=== PATIENT | male | born 1955 | race Caucasian/White ===

== ENCOUNTER 2016-09-12 10:33 | Emergency (ER) | payer OTHER, MEDICAID ==
[2016-09-12 10:46] VITALS: BP 167/96
[2016-09-12] MEDS ORDERED: PROPARACAINE 0.5% OPHTH DROPS 15 ML ONE (12:06)
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
== END 2016-09-12 12:29 | disposition home or self-care (01) ==
LOC: ED 10:33
DX: S05.02XA Injury of conjunctiva and corneal abrasion without foreign body, left eye, initial encounter (principal)
CPT/HCPCS: 99283; J3490

== ENCOUNTER 2016-12-23 18:41 | Outpatient (CLI) | payer OTHER, MEDICAID | END 2016-12-23 18:42 | disposition short-term general hospital (02) | LOC: EMS 18:41 | PROVIDERS: ATTEND Surgery | DX: M54.2 Cervicalgia (principal); W17.89XA Other fall from one level to another, initial encounter; Y93.H9 Activity, other involving exterior property and land maintenance, building and construction; Y92.007 Garden or yard of unspecified non-institutional (private) residence as the place of occurrence of the external cause | CPT/HCPCS: A0425; A0429 ==

== ENCOUNTER 2017-02-25 11:20 | Emergency (ER) | payer OTHER, MEDICAID ==
[2017-02-25] MEDS ORDERED: HYDROmorphone 0.5 MG/0.5 ML SYRINGE IVP STA (11:49)
[2017-02-25] MEDS ORDERED: diazePAM INJ 5 MG/ML SYRINGE IVP STA (11:49)
[2017-02-25] MEDS ORDERED: HYDROmorphone 1 MG/ML SYRINGE IVP STA (12:16)
[2017-02-25] MEDS ORDERED: diazePAM INJ 5 MG/ML SYRINGE ONE (12:31)
[2017-02-25] MEDS ORDERED: HYDROmorphone 1 MG/ML SYRINGE ONE (12:32)
[2017-02-25 12:43] LABS: BASOPHILS # (AUTO) 0.1 10^3/uL (0.0-0.1); BASOPHILS % (AUTO) 1.2 %; EOSINOPHILS # (AUTO) 0.1 10^3/uL (0.0-0.7); EOSINOPHILS % (AUTO) 1.2 %; HCT - HEMATOCRIT 42.3 % (42.0-52.0); HGB - HEMOGLOBIN 14.5 g/dL (14.0-18.0); LYMPHOCYTES # (AUTO) 1.3 10^3/uL (1.5-3.5); MEAN CORPUSCULAR HEMOGLOBIN 28.8 pg (27.0-31.0); MEAN CORPUSCULAR HGB CONC 34.2 g/dL (32.0-36.0); MEAN CORPUSCULAR VOLUME 84.3 fL (80.0-94.0); MEAN PLATELET VOLUME 7.6 fL (7.4-11.4); MONOCYTES # (AUTO) 0.4 10^3/uL (0.0-1.0); MONOCYTES % (AUTO) 7.3 %; NEUTROPHILS # (AUTO) 3.4 10^3/uL (1.5-6.6); NEUTROPHILS % (AUTO) 65.3 %; NUCLEATED RED BLOOD CELLS AUTO 0.1 /100WBC; RED BLOOD COUNT 5.02 10^6/uL (4.70-6.10); RED CELL DISTRIBUTION WIDTH 15.2 % (12.0-15.0); UNCORRECTED WHITE BLOOD COUNT 5.2 x10^3/uL; WHITE BLOOD COUNT 5.2 x10^3/uL (4.8-10.8)
[2017-02-25 13:02] LABS: ALBUMIN/GLOBULIN RATIO 1.3 (1.0-2.2); BILIRUBIN,TOTAL 0.5 mg/dL (0.2-1.0); CALCIUM 9.6 mg/dL (8.5-10.3); CREATININE 0.7 mg/dL (0.6-1.2); POTASSIUM 4.2 mmol/L (3.5-5.0); TOTAL PROTEIN 7.4 g/dL (6.7-8.2)
[2017-02-25] MEDS ORDERED: LORazepam 2 MG/ML SYRINGE IVP STA (13:47)
[2017-02-25] MEDS ORDERED: SODIUM CHLORIDE 0.9% 1,000 ML IV ONE (13:50)
--- NOTE | 2017-02-25 13:51 | CT Preliminary Report ---
Exam: CT HEAD W/O IMPRESSION: 1. 1. Negative for an acute or focal intracranial abnormality. [facility] SITE ID: [id number]
--- NOTE | 2017-02-25 13:53 | CT Report ---
EXAM: CT HEAD EXAM DATE: 02/25/2017 01:28 PM. CLINICAL HISTORY: Uncontrollable tremors. COMPARISON: None. TECHNIQUE: Multiaxial CT images were obtained from the foramen magnum to the vertex. Reformats: Coron al. IV contrast: None. In accordance with CT protocol optimization, one or more of the following dose reduction techniques w ere utilized for this exam: automated exposure control, adjustment of mA and/or KV based on patient s ize, or use of iterative reconstructive technique. FINDINGS: Parenchyma: No intraparenchymal hemorrhage. No evidence of mass, midline shift, or CT findings of inf arction. Hughes-white differentiation is distinct. Extraaxial Spaces: No abnormal subdural or epidural fluid collection. Ventricles: Normal in size and position. Sinuses and Orbits: Imaged paranasal sinuses, orbits, and mastoids show no significant abnormality. Bones: No evidence of fracture or calvarial defect. Other: None. IMPRESSION: 1. 1. Negative for an acute or focal intracranial abnormality. [facility] Referring Provider Line: [phone] SITE ID: [id number]
[2017-02-25] MEDS ORDERED: LORazepam 2 MG/ML SYRINGE ONE (13:55)
--- NOTE | 2017-02-25 13:55 | ED Physician Documentation ---
History of Present Illness - Stated complaint Stated Complaint: SHAKING/SLURRED SPEECH - Chief complaint Chief Complaint: General - History obtained from History obtained from: Patient, Family (sister) - History of Present Illness Timing: How many days ago (Progressive over the past 4 days.) - Additonal information Additional information: The patient is a 61-year-old male who is 2 months status post cervical spine surgery with decompression and fusion, and who presents today with uncontrollable shaking that has been progressing over the past 4 days. He has had tremor since the surgery, but it has become much more severe since yesterday. He was at rehabilitation today and was sent here for further evaluation. He usually uses a cane to assist with ambulation. He reports numbness on his left side that is unchanged since the surgery. He reports that before the surgery he was paralyzed from the neck down, but has regained much of his strength since the operation. He reports constant headache and intermittent incontinence. He denies fever, cough, nausea, vomiting, or dysuria. He has spoken to his surgeon who advised that the tremor is not likely to have anything to do with the surgery. Review of Systems Constitutional: denies: Fever Eyes: denies: Decreased vision Ears: denies: Tinnitus/ringing Nose: denies: Congestion Throat: denies: Sore throat Cardiac: denies: Chest pain / pressure, Palpitations Respiratory: denies: Dyspnea, Cough GI: denies: Abdominal Pain, Nausea, Vomiting : reports: Incontinent (intermittently). denies: Dysuria Skin: denies: Rash Musculoskeletal: reports: Neck pain (Improving since surgery.). denies: Extremity pain Neurologic: reports: Generalized weakness, Numbness (Chronic numbness left side. ), Headache (constant, with no recent change.), Other (Uncontrollable tremors, and stuttering speech.). denies: Confused PD PAST MEDICAL HISTORY - Past Medical History Cardiovascular: Congestive heart failure, Hypertension, Coronary artery disease Neuro: Other (Cervical spine stenosis.) Psych: Depression, Anxiety Musculoskeletal: Osteoarthritis, Chronic back pain, Other Other Past Medical History: cardiomyopathy - Past Surgical History Past Surgical History: Yes Ortho: Other (Decompressive surgery and fusion cervical spine.) HEENT: Tonsil/Adenoidectomy Derm: Skin grafts, Other - Present Medications Home Medications: Ambulatory Orders Medication Instructions Recorded Confirmed Modafinil 200 mg PO DAILY 07/23/15 02/25/17 Tamsulosin [Flomax] 0.4 mg PO DAILY 07/23/15 02/25/17 Zolpidem [Ambien] 10 mg PO DAILY 07/23/15 02/25/17 rOPINIRole [Requip] 0.25 mg PO DAILY 07/23/15 02/25/17 Desvenlafaxine Succinate [Pristiq] 20 mg PO BID 09/12/16 02/25/17 Furosemide [Lasix] 40 mg PO DAILY 09/12/16 02/25/17 Polymyxin B Sulf/Trimethoprim 1 drop LEFTEYE Q3H 7 Days drops 09/12/16 02/25/17 [Polytrim Eye Drops] Potassium Chloride 40 meq PO DAILY 09/12/16 02/25/17 Carisoprodol [Soma] 250 mg PO QID 02/25/17 02/25/17 Hydrocodone/Acetaminophen [Vicodin 1 tab PO QID 02/25/17 02/25/17 5-300 mg Tablet] diazePAM [Valium] 5 - 10 mg PO TID PRN #30 tablet 02/25/17 - Allergies Allergies/Adverse Reactions: Allergies Allergy/AdvReac Type Severity Reaction Status Date / Time meperidine HCl * Allergy Nausea Verified 07/23/15 11:34 [From Demerol] nalbuphine HCl * Allergy Anaphylaxis Verified 07/23/15 11:34 [From Nubain] - Social History Does the pt smoke?: No Smoking Status: Never smoker Does the pt drink ETOH?: Yes Does the pt have substance abuse?: No PD ED PE NORMAL - Vitals Vital signs reviewed: Yes (hypertensive) - General General: Well developed/nourished, Other (overweight) - HEENT HEENT: Atraumatic, EOMI, Pharynx benign - Neck Neck: No adenopathy, No JVD, Other (Well-healed surgical scar posteriorly. 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 Speech is somewhat dysarthric, with a stuttering pattern. There is decreased light touch sensation of the left upper and lower extremities.) Eye Opening: Spontaneous Motor: Obeys Commands Verbal: Oriented GCS Score: 15 Results - Vitals Vitals: Oxygen O2 Source Room air - Labs Labs: Laboratory Tests 02/25/17 02/25/17 02/25/17 12:25 12:25 14:20 WBC 5.2 RBC 5.02 Hgb 14.5 Hct 42.3 MCV 84.3 MCH 28.8 MCHC 34.2 RDW 15.2 H Plt Count 178 MPV 7.6 Neut # 3.4 Lymph # 1.3 L [place] # 0.4 Eos # 0.1 Baso # 0.1 Absolute Nucleated RBC 0.00 Nucleated RBC % 0.1 Sodium 138 Potassium 4.2 Chloride 105 Carbon Dioxide 25 Anion Gap 8.0 BUN 24 H Creatinine 0.7 Estimated GFR (MDRD) 115 Glucose 101 H Calcium 9.6 Total Bilirubin 0.5 AST 16 ALT 23 Alkaline Phosphatase 82 Total Protein 7.4 Albumin 4.2 Globulin 3.2 Albumin/Globulin Ratio 1.3 Lipase 22 Urine Color YELLOW Urine Clarity CLEAR Urine pH 6.0 Ur Specific [place] 1.025 Urine Protein NEGATIVE Urine Glucose (UA) NEGATIVE Urine Ketones NEGATIVE Urine Occult Blood NEGATIVE Urine Nitrite NEGATIVE Urine Bilirubin NEGATIVE Urine Urobilinogen 0.2 (NORMAL) Ur Leukocyte Esterase NEGATIVE Ur Microscopic Review NOT INDICATED Urine Culture Comments NOT INDICATED - Rads (name of study) CT head w/o Radiology: Prelim report reviewed, EMP read contemporaneously, See rad report ( Negative for an acute or focal intracranial abnormality.) CT C-spine Radiology: Prelim report reviewed, EMP read contemporaneously, See rad report ( 1. Postoperative changes. 2. Prominent degenerative changes as described, including canal narrowing most marked at C2-C3 and C4-C5.) PD MEDICAL DECISION MAKING - ED course Complexity details: reviewed old records, reviewed results, re-evaluated patient , considered differential, d/w patient, d/w family ED course: The patient presents with gross tremor, the etiology of which is unclear at this time. This does not appear consistent with seizure activity, as it has been persistent for several days. CT scans of the head and neck reveal no acute abnormality. CBC, chemistry panel, and urinalysis are essentially normal , except for elevated BUN to creatinine ratio, with BUN 24 and creatinine 0.7. The patient declined IV fluids out of concern for congestive heart failure which she has had in the past. He does demonstrate ability to take fluids orally. Treatment in the emergency department included administration of hydromorphone 1 mg IV, diazepam 5 mg IV, and lorazepam 1 mg IV. With the above treatment the patient's tremor improved, with only a slight tremor of the left upper extremity remained. Prior to discharge is tremor began to increase, so an additional 5 mg of lorazepam was administered orally. He demonstrates ability to ambulate with the assistance of his cane. He is being discharged with prescription for diazepam. I discussed with him and his sister the results of the workup, the importance of follow-up as planned , as well as potentially worrisome signs or symptoms that should prompt reevaluation in the emergency department. Departure - Departure Disposition: 01 Home, Self Care Clinical Impression: Tremor, H/O cervical spine surgery Condition: Stable Instructions: Essential Tremor ET Follow-Up: YADIRA WALDEN SI [Primary Care Provider] - Yunier Salinas MD [Physician No Access] - Prescriptions: diazePAM [Valium] 5 - 10 mg PO TID PRN #30 tablet PRN Reason: Spasms Comments: You can use Valium as prescribed if needed for tremors. Follow up with your primary physician within 1 week. Call to schedule an appointment. Return to the emergency department if you develop increasing uncontrollable shaking, or otherwise worsening symptoms. Discharge Date/Time: 02/25/17 16:50
[2017-02-25 14:37] LABS: BILIRUBIN,URINE NEGATIVE (NEGATIVE)
[2017-02-25 14:42] LABS: UA CHARGE (STRIP ONLY) YES; UR CULTURE IF IND NOT INDICATED
--- NOTE | 2017-02-25 15:16 | CT Preliminary Report ---
Exam: CT CERVICAL SPINE W/O IMPRESSION: 1. Postoperative changes. 2. Prominent degenerative changes as described, including canal narrowing most marked at C2-C3 and C4 -C5. [facility] SITE ID: [id number]
--- NOTE | 2017-02-25 15:18 | CT Report ---
EXAM: CT CERVICAL SPINE WITHOUT CONTRAST DATE: 02/25/2017 01:28 PM. HISTORY: Uncontrollable tremors.. COMPARISONS: None. TECHNIQUE: Thin-section axial images were acquired of the cervical spine without contrast. Post-proce ssing: Coronal and sagittal reformats. Other: None. In accordance with CT protocol optimization, one or more of the following dose reduction techniques w ere utilized for this exam: automated exposure control, adjustment of mA and/or KV based on patient s ize, or use of iterative reconstructive technique. FINDINGS: Alignment: Normal. No scoliosis or spondylolisthesis. Bones: No fracture or bone lesion. Pedicle screws and rods in C2, C3, C4, and C5, with associated pos toperative changes. Interspace Levels/Facets: Disk spaces well-preserved. Anterior and posterior osteophytes throughout t he cervical spine including large posterior osteophytes with associated ligamentous calcification at C2-C3 and at C4-C5, narrowing the canal by as much as 40%. Prominent anterior osteophytes, largest at C4-C5; these could account for symptoms of dysphagia. Musculature: Grossly unremarkable. Other: The paravertebral and prevertebral soft tissues are normal. The lung apices are clear. IMPRESSION: 1. Postoperative changes. 2. Prominent degenerative changes as described, including canal narrowing most marked at C2-C3 and C4 -C5. [facility] Referring Provider Line: [phone] SITE ID: [id number]
[2017-02-25 16:01] VITALS: BP 126/61
[2017-02-25] MEDS ORDERED: diazePAM 5 MG TABLET PO STA (16:33)
[2017-02-25] MEDS ORDERED: diazePAM 5 MG TABLET PO ONE (16:41)
== END 2017-02-25 16:50 | disposition home or self-care (01) ==
LOC: ED 11:20
DX: R25.1 Tremor, unspecified (principal); I11.0 Hypertensive heart disease with heart failure; I50.9 Heart failure, unspecified; I25.10 Atherosclerotic heart disease of native coronary artery without angina pectoris; Z98.1 Arthrodesis status
CPT/HCPCS: 36415; 51701; 70450; 72125; 80053; 81003; 83690; 85025; 96374; 96375; 99283; 99284; A9270; J1170; J2060; 81001; 87086

== ENCOUNTER 2017-02-27 13:27 | Outpatient (CLI) | payer OTHER, MEDICAID ==
--- NOTE | 2017-02-28 04:23 | MRI Report ---
EXAM: MRI CERVICAL SPINE WITHOUT CONTRAST EXAM DATE: 02/27/2017 02:25 PM. CLINICAL HISTORY: Whole-body muscle tremors, history of paralysis COMPARISONS: CT cervical spine 02/25/2017. TECHNIQUE: Multiplanar, multisequence T1-weighted and fluid-sensitive sequences of the cervical spine without contrast. Other: None. FINDINGS: Neurologic Structures: The visualized posterior fossa structures are unremarkable. There is a 6 mm ba nd of increased T2 signal involving the central cord at C2-C3. Alignment: Normal. No scoliosis or spondylolisthesis. Bone Marrow: No gross fractures or bone lesions. No marrow edema. Interspace Levels/Facets: C1-C2: Unremarkable. 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 There is a 6 mm band of increased T2 signal involving the left aspect of the cord. Cord remains posteriorly displaced and distorted by the osteophyte complex. Patient status post posterior decompression. There is now moderate central canal narrowing. C3-C4: There is ossification the posterior longitudinal ligament with a band of low density material extending 3.5 mm into the central canal. Patient status post posterior decompression and fusion. Ther e is no significant central canal narrowing. There is mild left neural foraminal narrowing. C4-C5: There is ossification of the posterior longitudinal ligament with a band of low signal materia l extending 4 mm into the central canal. Patient status post posterior decompression. No evidence of central canal or neural foraminal narrowing. C5-C6: There is a small central disk osteophyte complex. There is mild central canal narrowing. There is no neural foraminal narrowing. C6-C7: There is a broad-based disk osteophyte complex. There is ligamentum flavum thickening. There i s moderate central canal narrowing. No significant neural foraminal narrowing. C7-T1: There is a broad-based disk bulge. No significant central canal narrowing. There is uncoverteb ral osteophytosis with mild right neural foraminal narrowing. Musculature: Normal. No edema or fatty atrophy. Other: The paravertebral and prevertebral soft tissues are normal. IMPRESSION: 1. Status post posterior decompression at the C2-C3 and C3-C4 and C4-C5 levels with posterior fusion extending from C2-C4. 2. 6 mm band of high T2 signal involving left central cord and C2-C3 consistent with myelomalacia. Th ere appears to be residual moderate C2-C3 stenosis with anterior osteophyte displacing cord posterior ly and distorting cord contour. 3. Mild residual central canal narrowing at C3-C4 and C4-C5. 4. C6-C7 disk bulge and posterior element degenerative changes with moderate central canal narrowing. 5. Mild left C3-C4 and mild right C7-T1 neural foraminal narrowing. [facility] Referring Provider Line: [phone] SITE ID: [id number]
== END 2017-02-27 13:28 | disposition home or self-care (01) ==
LOC: DI 13:27
PROVIDERS: ATTEND Orthopaedic Surgery
DX: M47.12 Other spondylosis with myelopathy, cervical region (principal); Z98.1 Arthrodesis status
CPT/HCPCS: 72141

== ENCOUNTER 2017-03-18 06:59 | Outpatient (CLI) | payer OTHER, MEDICAID | END 2017-03-18 07:00 | disposition short-term general hospital (02) | LOC: EMS 06:59 | PROVIDERS: ATTEND Surgery | DX: M54.2 Cervicalgia (principal); W19.XXXA Unspecified fall, initial encounter | CPT/HCPCS: A0170; A0425; A0429 ==

== ENCOUNTER 2017-08-12 11:31 | Outpatient (CLI) | payer OTHER, MEDICAID ==
[2017-08-12 18:05] LABS: ALBUMIN 4.4 g/dL (3.2-5.5); ALBUMIN/GLOBULIN RATIO 1.6 (1.0-2.2); BILIRUBIN,TOTAL 0.6 mg/dL (0.2-1.0); CALCIUM 9.3 mg/dL (8.5-10.3); CREATININE 0.9 mg/dL (0.6-1.2); TOTAL PROTEIN 7.2 g/dL (6.7-8.2)
== END 2017-08-12 11:32 | disposition home or self-care (01) ==
LOC: LAB.F 11:31
PROVIDERS: ATTEND Internal Medicine
DX: M54.12 Radiculopathy, cervical region (principal); M19.90 Unspecified osteoarthritis, unspecified site; I10 Essential (primary) hypertension
CPT/HCPCS: 36415; 80053